=== PATIENT | male | born 1990 | race Caucasian/White ===

== ENCOUNTER 2022-05-06 11:23 | Outpatient (REF) | payer MEDICAID, SELFPAY ==
--- NOTE | ~2022-05-06 | XR_ITS ---
EXAMINATION: XR LUMBAR SPINE XR CHEST XR FOOT, LEFT XR SHOULDER, RIGHT CLINICAL INFORMATION: Chest pain. COMPARISON: None TECHNIQUE: Chest 2 views. Right shoulder 4 views, lumbar spine 3 views and left foot 3 views. FINDINGS: CHEST: The lungs are well expanded and clear. The heart size and pulmonary vascularity is normal. No gross bony abnormality seen. LUMBAR SPINE: There is normal lumbar lordosis. The vertebral heights, alignment and disc heights are normal. There is no visible acute fracture, dislocation or subluxation seen. There is moderate ventral spondylosis with loss of disc height at L2-L3 disc level. The rest of the disc heights are normal. There is bilateral L5 pars defect but no listhesis seen. There is bilateral SI joint sclerosis. RIGHT SHOULDER: The glenohumeral joint space and AC joint space are normal. No visible acute fracture, dislocation or subluxation. The soft tissues are normal. LEFT FOOT: There is no visible acute fracture, dislocation or subluxation. There is a lucency in the inferior calcaneal best visualized on AP view. There are small retrocalcaneal and dorsal talonavicular enthesophytes. The ankle mortise and subtalar joints are normal. XR/XR shoulder RT min 2V IMPRESSION: Unremarkable chest exam. Bilateral L5 pars defect without listhesis. There is bilateral SI joint sclerosis suggestive of sacroiliitis. Unremarkable right shoulder exam. Subtle lucency in the calcaneal bone likely intraosseous cyst. Retrocalcaneal and dorsal talonavicular spurring.
--- NOTE | ~2022-05-06 | XR_ITS ---
EXAMINATION: XR LUMBAR SPINE XR CHEST XR FOOT, LEFT XR SHOULDER, RIGHT CLINICAL INFORMATION: Chest pain. COMPARISON: None TECHNIQUE: Chest 2 views. Right shoulder 4 views, lumbar spine 3 views and left foot 3 views. FINDINGS: CHEST: The lungs are well expanded and clear. The heart size and pulmonary vascularity is normal. No gross bony abnormality seen. LUMBAR SPINE: There is normal lumbar lordosis. The vertebral heights, alignment and disc heights are normal. There is no visible acute fracture, dislocation or subluxation seen. There is moderate ventral spondylosis with loss of disc height at L2-L3 disc level. The rest of the disc heights are normal. There is bilateral L5 pars defect but no listhesis seen. There is bilateral SI joint sclerosis. RIGHT SHOULDER: The glenohumeral joint space and AC joint space are normal. No visible acute fracture, dislocation or subluxation. The soft tissues are normal. LEFT FOOT: There is no visible acute fracture, dislocation or subluxation. There is a lucency in the inferior calcaneal best visualized on AP view. There are small retrocalcaneal and dorsal talonavicular enthesophytes. The ankle mortise and subtalar joints are normal. XR/XR lumbar spine 2-3V IMPRESSION: Unremarkable chest exam. Bilateral L5 pars defect without listhesis. There is bilateral SI joint sclerosis suggestive of sacroiliitis. Unremarkable right shoulder exam. Subtle lucency in the calcaneal bone likely intraosseous cyst. Retrocalcaneal and dorsal talonavicular spurring.
--- NOTE | ~2022-05-06 | XR_ITS ---
EXAMINATION: XR LUMBAR SPINE XR CHEST XR FOOT, LEFT XR SHOULDER, RIGHT CLINICAL INFORMATION: Chest pain. COMPARISON: None TECHNIQUE: Chest 2 views. Right shoulder 4 views, lumbar spine 3 views and left foot 3 views. FINDINGS: CHEST: The lungs are well expanded and clear. The heart size and pulmonary vascularity is normal. No gross bony abnormality seen. LUMBAR SPINE: There is normal lumbar lordosis. The vertebral heights, alignment and disc heights are normal. There is no visible acute fracture, dislocation or subluxation seen. There is moderate ventral spondylosis with loss of disc height at L2-L3 disc level. The rest of the disc heights are normal. There is bilateral L5 pars defect but no listhesis seen. There is bilateral SI joint sclerosis. RIGHT SHOULDER: The glenohumeral joint space and AC joint space are normal. No visible acute fracture, dislocation or subluxation. The soft tissues are normal. LEFT FOOT: There is no visible acute fracture, dislocation or subluxation. There is a lucency in the inferior calcaneal best visualized on AP view. There are small retrocalcaneal and dorsal talonavicular enthesophytes. The ankle mortise and subtalar joints are normal. XR/XR foot LT min 3V IMPRESSION: Unremarkable chest exam. Bilateral L5 pars defect without listhesis. There is bilateral SI joint sclerosis suggestive of sacroiliitis. Unremarkable right shoulder exam. Subtle lucency in the calcaneal bone likely intraosseous cyst. Retrocalcaneal and dorsal talonavicular spurring.
--- NOTE | ~2022-05-06 | XR_ITS ---
EXAMINATION: XR LUMBAR SPINE XR CHEST XR FOOT, LEFT XR SHOULDER, RIGHT CLINICAL INFORMATION: Chest pain. COMPARISON: None TECHNIQUE: Chest 2 views. Right shoulder 4 views, lumbar spine 3 views and left foot 3 views. FINDINGS: CHEST: The lungs are well expanded and clear. The heart size and pulmonary vascularity is normal. No gross bony abnormality seen. LUMBAR SPINE: There is normal lumbar lordosis. The vertebral heights, alignment and disc heights are normal. There is no visible acute fracture, dislocation or subluxation seen. There is moderate ventral spondylosis with loss of disc height at L2-L3 disc level. The rest of the disc heights are normal. There is bilateral L5 pars defect but no listhesis seen. There is bilateral SI joint sclerosis. RIGHT SHOULDER: The glenohumeral joint space and AC joint space are normal. No visible acute fracture, dislocation or subluxation. The soft tissues are normal. LEFT FOOT: There is no visible acute fracture, dislocation or subluxation. There is a lucency in the inferior calcaneal best visualized on AP view. There are small retrocalcaneal and dorsal talonavicular enthesophytes. The ankle mortise and subtalar joints are normal. XR/XR chest 2V IMPRESSION: Unremarkable chest exam. Bilateral L5 pars defect without listhesis. There is bilateral SI joint sclerosis suggestive of sacroiliitis. Unremarkable right shoulder exam. Subtle lucency in the calcaneal bone likely intraosseous cyst. Retrocalcaneal and dorsal talonavicular spurring.
[2022-05-06 11:46] LABS: MANUAL DIFF FLAG NO
[2022-05-06 12:25] LABS: Basophils Absolute Auto 0.1 X10*3/uL (0.0-0.2); Basophils Percent Auto 0.8 % (0-2); Eosinophils Absolute Auto 0.5 X10*3/uL (0.0-0.4); Eosinophils Percent Auto 4.2 % (0-4); Hematocrit 41.9 % (42.0-52.0); Hemoglobin 14.1 g/dl (14.0-18.0); Imm Gran Abs Auto 0.08 X10*3/uL (0.00-0.03); Imm Gran Pct Auto 0.7 % (0.0-0.4); Lymphocytes Absolute Auto 2.8 X10*3/uL (1.2-4.9); Lymphocytes Percent Auto 23.3 % (20-40); Mean Corpuscular HGB Conc 33.7 g/dl (31.0-36.0); Mean Corpuscular Hemoglobin 26.4 pg (27.0-33.0); Mean Corpuscular Volume 78.5 fL (80.0-98.0); Monocytes Absolute Auto 0.6 X10*3/uL (0.1-1.2); Monocytes Percent Auto 4.7 % (2-11); Neutrophils Percent Auto 66.3 % (45-73); Platelet Count 485 X10*3/uL (160-400); Red Blood Count 5.34 X10*6/uL (4.60-5.80); Red Cell Distribution Width 13.4 % (11.0-16.0); White Blood Count 12.1 X10*3/uL (4.8-10.8)
[2022-05-06 13:19] LABS: Alanine Aminotransferase 29 U/L (0-40); Alkaline Phosphatase 90 U/L (39-117); Anion Gap 16 (12-20); Aspartate Amino Transferase 22 U/L (5-37); Bilirubin Total 0.2 mg/dL (0.0-1.0); Blood Urea Nitrogen 9 mg/dL (9-16); Calcium 9.2 mg/dL (8.4-10.2); Carbon Dioxide 25 mmol/L (22-29); Chloride 98 mmol/L (96-108); Cholesterol 338 mg/dL; Estimated Glomerular Filt Rate > 60; Glucose Random 330 mg/dL (60-115); HDL Cholesterol 30 mg/dL; Potassium 4.9 mmol/L (3.3-5.1); Sodium 134 mmol/L (135-145); Total Protein 9.1 g/dL (6.5-8.0); Triglycerides 2208 mg/dL
[2022-05-06 13:27] LABS: Thyroid Stimulating Hormone 0.58 uIU/mL (0.32-4.0)
[2022-05-06 14:11] LABS: Creatinine Urine 65.35 mg/dL; Microalbum/Creatinine Ratio Ur 783.4 ug/mg cr
== END 2022-05-06 11:24 | disposition home or self-care (01) ==
LOC: HO.XRAY 11:23
PROVIDERS: PCP Family Medicine; Visit Provider Family Medicine
DX: R07.89 Other chest pain (principal); M25.511 Pain in right shoulder; M54.50 Low back pain, unspecified; M79.675 Pain in left toe(s); E66.9 Obesity, unspecified; I10 Essential (primary) hypertension
CPT/HCPCS: 36415; 71046; 72100; 73030; 73630; 80053; 80061; 82043; 84443; 85025

== ENCOUNTER 2023-06-19 20:48 | Emergency (ER) | payer OTHER, SELFPAY ==
--- NOTE | ~2023-06-19 | XR_ITS ---
EXAMINATION: XR KNEE, RIGHT CLINICAL INFORMATION: Pain edema stiffness COMPARISON: None available. TECHNIQUE: Four views of the right knee. FINDINGS: There is a moderate joint effusion. There is mild osteoarthritis with marginal osteophytes noted about the patellofemoral and lateral compartment. No fracture. Surrounding bone and soft tissues unremarkable XR/XR knee RT 2V IMPRESSION: 1. Joint effusion. 2. Mild osteoarthritis.
[2023-06-19 21:48] VITALS: BP 123/62; PULSE 85; RESP 19; TEMP 36.9; O2SAT 95; BMI 29.8
--- NOTE | 2023-06-20 02:20 | ED_ITS ---
HPI - Extremity Problem General Chief complaint: Extremity Problem Stated complaint: R knee swelling Time Seen by Provider: 06/20/23 00:36 History of Present Illness HPI Narrative: Patient is a 32-year-old male presents today with having right knee pain. Pain is worse with movement. There was no trauma associated with it. No fever no chills. Symptoms been getting worse over the last week. Presented to the ED for further evaluation. Related Data Previous Rx's Medication Instructions Recorded ibuprofen 400 mg tablet 400 mg PO Q6H PRN pain #20 tabs 06/20/23 Allergies Allergy/AdvReac Type Severity Reaction Status Date / Time SEASONAL ALLERGIES Allergy Intermediate ITCHY EYES Uncoded 06/27/20 16:06 TOPICAL STEROIDS Allergy Unknown RASH Uncoded 06/27/20 16:06 topical steroids Allergy Unknown rash Uncoded 09/13/17 00:00 Review of Systems Review of Systems: Positive pain to the right knee Yes all other systems are reviewed and are negative PMFSH Past Medical History Attestation statement: The following information was validated with the patient. Social History Social History Advance Directives: No Advance Directives Information Provided: No Physical Exam Vital Signs: Vital Signs: Last Vital Signs Temp 98.5 F 06/19/23 21:48 Pulse 85 06/19/23 21:48 Resp 19 06/19/23 21:48 BP 123/62 06/19/23 21:48 Pulse Ox 95 06/19/23 21:48 BMI result Body Mass Index 29.8 Appearance: Alert. Oriented X3. No acute distress. Eyes: Pupils equal, round and reactive to light. ENT: Pharynx normal. Neck: Normal inspection. Neck supple. No lymph nodes noted. No crepitus CVS: Normal heart rate and rhythm. Pulses normal. Normal S1 and S2 Respiratory: No respiratory distress. Breath sounds normal. No Wheezing. No rales Abdomen: Soft and nontender. No rigidity. No distention. good BS x4 Skin: Skin warm and dry. Normal skin color. Normal skin turgor. Extremities: Examination of right knee showed no gross erythema. Skin intact. No tenderness on palpation in medial and lateral collateral ligament. There is large amount of joint effusion noted. Range of motion mostly intact. Neuro: Oriented X 3. No motor deficit. No sensory deficit. Moving all exterm ities. No slurred speech Medications Administered Discontinued Medications Generic Name Dose Route Start Last Admin Trade Name Rudy PRN Reason Stop Dose Admin Acetaminophen 975 mg 06/20/23 02:13 06/20/23 02:50 Acetaminophen 325 Mg Tablet PO 06/20/23 02:14 975 mg ONCE ONE Administration Ibuprofen 800 mg 06/20/23 02:13 06/20/23 02:50 Ibuprofen 800 Mg Tablet PO 06/20/23 02:14 800 mg ONCE ONE Administration Medical Decision Making Medical Decision Making [facility] Narrative: My interpretation the patient's x-ray showed no acute fracture. Radiology is reading showed large amount of effusion. Given patient's increasing swelling. Will go ahead and tap the knee. Risk and benefit of the arthrocentesis explain to patient. Risks including bleeding and infection. Patient's right knee was tapped. Over 60 cc of fluid was retrieved. It was Dr. In color bed definitely clear. Viscus. Patient's white count off the synovial fluid was 7693. This is consistent with having an inflammatory arthritis. No evidence of septic joint. X-ray showed no acute evidence of fracture. Will discharge patient home. Crystal glucose and protein are not going to be back today as there was sent out to [facility]. Differential Diagnosis Differential Diagnoses: The differential diagnosis associated with the presentation includes Arthritis, joint infection, fracture Lab Data [facility] Lab Attestation statement: I reviewed the patient's lab results. Labs: Lab Results 06/20/23 Range/Units 03:59 Synovial Source right knee Synovial WBC 7.693 X10*3/uL Synovial RBC 0.007 X10*6/uL Synovial Neutrophils 82 % Synovial Lymphocytes 6 % Synovial Monocytes 12 % Independent Interpretation I performed an independent interpretation of an: Plain X-Ray Interpretation: X-ray the knee showed no fracture but positive effusion Radiology Impression Discussion of test interpretation with radiology: I have reviewed the radiologist's reading. Prescription Management I considered prescription management with: Pain Medication Procedures Joint Aspiration/Injection Joint Asp./Inject. 1: Time Out Performed: Yes Side of body: right Joint Aspirated: knee Ultrasound Guidance: No Skin Prep: Povidone-Iodine1% Local Anesthetic: lidocaine 1% Amount of anesthesia used (mL): 4 Needle Size Used: 20G Fluid Obtained: viscous Total fluid obtained (mL): 60 Patient Tolerated Procedure: well Complications: none Discharge Plan Discharge Clinical Impression: Arthritis Patient Disposition: Home, Self-Care Instructions: Osteoarthritis (ED) Prescriptions: New ibuprofen 400 mg tablet 400 mg PO Q6H PRN (Reason: pain) Qty: 20 0RF Referrals: Antionette Borja MD [Primary Care Provider] - 06/22/23
--- NOTE | 2023-06-20 02:43 | PC.NURSE ---
this rn assumed care of pt from [facility] pt awaiting ed provider for procedure. pt resting comfortably calm and cooperative
[2023-06-20] MEDS: Acetaminophen 325 MG TABLET 975 MG PO (02:50)
[2023-06-20] MEDS: Ibuprofen 800 MG TABLET PO (02:50)
--- NOTE | 2023-06-20 04:00 | PC.NURSE ---
late entry- this rn, chief medical officer, and additional rn at bedside with dr robins for knee tap. samples sent down to lab. pt diaphoretic. pt states the size of the needle made me nervous dr robins discussed with pt disposition and pt agreeable to continue with knee aspiration. pt reports feeling better with less pressure after aspiration was completed.
[2023-06-20 04:08] LABS: Source Synovial Fluid right knee
[2023-06-20 04:11] LABS: MN% 31.7 %; PMN% 68.3 %; RBC Synovial Fluid 0.007 X10*6/uL; WBC Synovial Fluid 7.693 X10*3/uL
[2023-06-20 04:49] LABS: BF Shift QC OK YES; Lymphocytes Synovial Fluid 6 %; Neutrophils Synovial Fluid 82 %
[2023-06-20 04:50] LABS: Monocytes Synovial Fluid 12 %
[2023-06-20 05:19] VITALS: BP 151/61; PULSE 70; RESP 14; TEMP 36.6; O2SAT 94
--- NOTE | 2023-06-20 05:21 | PC.NURSE ---
pt ambulatory at discharge. vss. pt calm and cooperative. pt provided with discharge packet. pt verbalized understanding of discharge plan
--- NOTE | 2023-06-20 05:39 | PC.NURSE ---
dr robins administered lidocaine prior to knee apsiration. order not placed by md ramos left prior to order placement
[2023-06-20 06:05] LABS: Glucose Synovial Fluid 122 MG/DL; Uric Acid Synovial Fluid 9 MG/DL
[2023-06-21 22:39] LABS: Lyme Synovial Fluid PCR NOT DETECTED (NOT DETECTED)
== END 2023-06-20 05:22 | disposition home or self-care (01) ==
PROVIDERS: Emergency Provider Emergency Medicine Emergency Medical Services; PCP Family Medicine
DX: M17.11 Unilateral primary osteoarthritis, right knee (principal); M25.461 Effusion, right knee; Z79.899 Other long term (current) drug therapy
CPT/HCPCS: 20610; 36415; 73560; 82945; 84560; 87070; 87073; 87205; 87476; 89051; 99284